=== PATIENT | female | born 1970 | race African-American/Black ===

== ENCOUNTER 2020-07-30 00:40 | Inpatient (IN) ==
[2020-07-30] MEDS ORDERED: VANCOMYCIN INJ 1,000 MG in SODIUM CHLORIDE 0.9% 250 ML IV STA (01:18)
[2020-07-30 01:42] LABS: Basophils % 0.3 % (0.0-0.8); Eosinophils # 0.1 10*3/uL (0.0-0.87); Eosinophils % 0.9 % (0.00-10.9); Hemoglobin 12.1 GM/DL (12.0-16.0); Immature Granulocytes % 0.5 %; Immature Granulocytes Absolute 0.08 #; Lymphocytes # 1.1 10*3/uL (1.4-4.0); Lymphocytes % 7.2 % (21.3-54.2); Mean Corpuscular HGB Conc 32.7 GM/DL (32-36); Mean Corpuscular Volume 91.1 FL (87-102); Mean Platelet Volume 10.4 FL (9.6-12.0); Neutrophils % 85.1 % (38.7-73.9); Platelet Count 359 T/CUMM (130-400); Red Blood Count 4.06 MC/CUMM (3.8-5.5); Red Cell Distribution Width 13.9 % (9.3-17.3); White Blood Count 14.9 T/CUMM (4-12)
[2020-07-30 02:16] LABS: Albumin 3.5 G/DL (3.4-5.0); Bilirubin,Total 0.9 MG/DL (0.2-1.0); Calcium 9.3 MG/DL (8.5-10.1); Osmolality,Calculated 278.8 MOS/KG (273-304); Total Protein 8.1 G/DL (6.4-8.3)
[2020-07-30] MEDS ORDERED: hydrALAZINE 20 MG/1 ML VIAL IV PRN (02:33)
[2020-07-30] MEDS ORDERED: diphenhydrAMINE CAP 25 MG CAPSULE PO PRN (02:33)
[2020-07-30] MEDS ORDERED: guaiFENesin/DM ER 600-30 MG TABLET PO PRN (02:33)
[2020-07-30] MEDS ORDERED: DEXTROSE 50% 25 GM/50 ML VIAL IV PRN (02:33)
[2020-07-30] MEDS ORDERED: NICOTINE 21 MG/24 HR PATCH TRANSDERM PRN (02:33)
[2020-07-30] MEDS ORDERED: ACETAMINOPHEN 325 MG TABLET PO PRN (02:33)
[2020-07-30] MEDS ORDERED: GLUCAGON 1 MG VIAL IM PRN (02:33)
[2020-07-30] MEDS ORDERED: ALUMINUM/MAGNES/SIMETH MAX STR 30 ML UDCUP PO PRN (02:33)
[2020-07-30] MEDS ORDERED: POTASSIUM CHLORIDE 20 MEQ TABLET PO ONE (11:15)
[2020-07-30] MEDS ORDERED: ENOXAPARIN 40 MG/0.4 ML SYRINGE SUBCUT SCH (11:30)
[2020-07-30] MEDS: CLINDAMYCIN INJ 600 MG in PREMIX 1 EACH IV SCH ×2 (11:48→21:13)
[2020-07-30] MEDS: VANCOMYCIN INJ 1,250 MG in SODIUM CHLORIDE 0.9% 250 ML IV SCH (13:46)
[2020-07-30] MEDS: INSULIN LISPRO 100 UNIT/ML SUBCUT SCH ×3 (13:46→21:06)
[2020-07-30] MEDS: MORPHINE 4 MG/1 ML VIAL IV PRN (18:42)
[2020-07-30] MEDS: ONDANSETRON 4 MG/2 ML VIAL IV PRN (18:42)
[2020-07-30] MEDS ORDERED: INSULIN GLARGINE 100 UNIT/ML SUBCUT SCH (21:00)
[2020-07-31] MEDS: VANCOMYCIN INJ 1,250 MG in SODIUM CHLORIDE 0.9% 250 ML IV SCH ×2 (01:50→15:12)
[2020-07-31] MEDS: CLINDAMYCIN INJ 600 MG in PREMIX 1 EACH IV SCH (05:15)
[2020-07-31 08:11] LABS: Basophils % 0.1 % (0.0-0.8); Eosinophils # 0.2 10*3/uL (0.0-0.87); Eosinophils % 1.7 % (0.00-10.9); Hematocrit 33.9 VOL% (35.7-47.0); Immature Granulocytes % 0.5 %; Immature Granulocytes Absolute 0.05 #; Lymphocytes # 1.4 10*3/uL (1.4-4.0); Mean Corpuscular HGB Conc 32.4 GM/DL (32-36); Mean Corpuscular Volume 90.2 FL (87-102); Mean Platelet Volume 9.5 FL (9.6-12.0); Monocytes % 7.5 % (1.7-12.7); Neutrophils % 77.2 % (38.7-73.9); Platelet Count 359 T/CUMM (130-400); Red Blood Count 3.76 MC/CUMM (3.8-5.5); Red Cell Distribution Width 14.1 % (9.3-17.3); White Blood Count 10.5 T/CUMM (4-12)
[2020-07-31 08:30] LABS: Osmolality,Calculated 290.1 MOS/KG (273-304)
[2020-07-31] MEDS: INSULIN LISPRO 100 UNIT/ML SUBCUT SCH ×4 (08:38→20:49)
[2020-07-31] MEDS: MORPHINE 4 MG/1 ML VIAL IV PRN (09:00)
[2020-07-31] MEDS: LOSARTAN 25 MG TABLET PO SCH (10:48)
[2020-07-31] MEDS: PIPERACILLIN/TAZOBACTAM 3,375 MG in SODIUM CHLORIDE 0.9% 100 ML IV SCH ×2 (10:48→17:54)
[2020-07-31] MEDS: INSULIN GLARGINE 100 UNIT/ML SUBCUT SCH (20:48)
[2020-08-01] MEDS: ONDANSETRON 4 MG/2 ML VIAL IV PRN (04:25)
[2020-08-01] MEDS: VANCOMYCIN INJ 1,250 MG in SODIUM CHLORIDE 0.9% 250 ML IV SCH ×2 (04:25→15:45)
[2020-08-01 05:16] LABS: Basophils % 0.3 % (0.0-0.8); Eosinophils # 0.1 10*3/uL (0.0-0.87); Eosinophils % 1.3 % (0.00-10.9); Hematocrit 32.1 VOL% (35.7-47.0); Hemoglobin 10.4 GM/DL (12.0-16.0); Immature Granulocytes % 0.7 %; Immature Granulocytes Absolute 0.08 #; Lymphocytes # 1.7 10*3/uL (1.4-4.0); Lymphocytes % 15.6 % (21.3-54.2); Mean Corpuscular HGB Conc 32.4 GM/DL (32-36); Mean Corpuscular Volume 91.2 FL (87-102); Mean Platelet Volume 9.8 FL (9.6-12.0); Monocytes % 7.2 % (1.7-12.7); Neutrophils % 74.9 % (38.7-73.9); Platelet Count 378 T/CUMM (130-400); Red Blood Count 3.52 MC/CUMM (3.8-5.5); Red Cell Distribution Width 14.1 % (9.3-17.3)
[2020-08-01] MEDS: MORPHINE 4 MG/1 ML VIAL IV PRN ×4 (07:23→22:36)
[2020-08-01] MEDS: PIPERACILLIN/TAZOBACTAM 3,375 MG in SODIUM CHLORIDE 0.9% 100 ML IV SCH ×3 (07:24→22:30)
[2020-08-01] MEDS: INSULIN LISPRO 100 UNIT/ML SUBCUT SCH ×4 (07:49→20:22)
[2020-08-01] MEDS ORDERED: BUPIVACAINE MPF 0.25% 30 ML VIAL ONE (08:31)
[2020-08-01] MEDS ORDERED: LIDOCAINE 1% 20 ML VIAL ONE (08:32)
[2020-08-01] MEDS ORDERED: SCOPOLAMINE 1.5 MG PATCH TRANSDERM ONE (08:50)
[2020-08-01] MEDS: LOSARTAN 25 MG TABLET PO SCH (08:51)
[2020-08-01] MEDS ORDERED: ONDANSETRON 4 MG/2 ML VIAL IV PRN (09:29)
[2020-08-01] MEDS ORDERED: propofoL 200 MG/20 ML VIAL IV ONE (09:31)
[2020-08-01] MEDS ORDERED: LIDOCAINE 2% 5 ML VIAL ONE (09:31)
[2020-08-01] MEDS ORDERED: MIDAZOLAM 2 MG/2 ML VIAL ONE (09:32)
[2020-08-01] MEDS ORDERED: DEXAMETHASONE 4 MG/1 ML VIAL ONE (09:32)
[2020-08-01] MEDS ORDERED: ONDANSETRON 4 MG/2 ML VIAL ONE (09:32)
[2020-08-01] MEDS ORDERED: fentaNYL 100 MCG/2 ML VIAL ONE (09:32)
[2020-08-01] MEDS: HYDROmorphone 2 MG/1 ML VIAL IV PRN ×4 (09:35→09:50)
[2020-08-01] MEDS ORDERED: MEPERIDINE 25 MG/1 ML VIAL IV ONE (09:55)
[2020-08-01] MEDS ORDERED: MEPERIDINE 25 MG/1 ML VIAL ONE (10:00)
[2020-08-01] MEDS: INSULIN GLARGINE 100 UNIT/ML SUBCUT SCH (20:21)
[2020-08-02] MEDS: VANCOMYCIN INJ 1,250 MG in SODIUM CHLORIDE 0.9% 250 ML IV SCH ×2 (05:22→20:11)
[2020-08-02] MEDS: PIPERACILLIN/TAZOBACTAM 3,375 MG in SODIUM CHLORIDE 0.9% 100 ML IV SCH ×3 (06:48→23:57)
[2020-08-02] MEDS: INSULIN LISPRO 100 UNIT/ML SUBCUT SCH ×4 (08:13→22:17)
[2020-08-02] MEDS: MORPHINE 4 MG/1 ML VIAL IV PRN ×2 (08:14→17:07)
[2020-08-02] MEDS: LOSARTAN 25 MG TABLET PO SCH (08:14)
[2020-08-02 09:05] LABS: Basophils % 0.3 % (0.0-0.8); Eosinophils # 0.2 10*3/uL (0.0-0.87); Eosinophils % 1.4 % (0.00-10.9); Hematocrit 33.8 VOL% (35.7-47.0); Immature Granulocytes % 0.9 %; Immature Granulocytes Absolute 0.13 #; Lymphocytes # 3.4 10*3/uL (1.4-4.0); Lymphocytes % 24.4 % (21.3-54.2); Mean Corpuscular HGB Conc 32.5 GM/DL (32-36); Mean Corpuscular Volume 90.1 FL (87-102); Mean Platelet Volume 9.4 FL (9.6-12.0); Monocytes % 4.6 % (1.7-12.7); Neutrophils % 68.4 % (38.7-73.9); Platelet Count 444 T/CUMM (130-400); Red Blood Count 3.75 MC/CUMM (3.8-5.5); Red Cell Distribution Width 14.2 % (9.3-17.3); White Blood Count 13.9 T/CUMM (4-12)
[2020-08-02 09:25] LABS: Calcium 9.4 MG/DL (8.5-10.1); Osmolality,Calculated 281.3 MOS/KG (273-304)
[2020-08-02] MEDS ORDERED: HYDROmorphone 2 MG/1 ML VIAL IV ONE (09:57)
[2020-08-02] MEDS: SODIUM HYPOCHLORITE 0.25% IRRIG 473 ML BOTTLE TOP SCH (10:16)
[2020-08-02] MEDS: INSULIN GLARGINE 100 UNIT/ML SUBCUT SCH (22:17)
[2020-08-03 05:44] LABS: Basophils % 0.4 % (0.0-0.8); Eosinophils # 0.2 10*3/uL (0.0-0.87); Hematocrit 36.2 VOL% (35.7-47.0); Hemoglobin 11.4 GM/DL (12.0-16.0); Lymphocytes # 3.1 10*3/uL (1.4-4.0); Lymphocytes % 31.4 % (21.3-54.2); Mean Corpuscular HGB Conc 31.5 GM/DL (32-36); Mean Corpuscular Volume 92.6 FL (87-102); Mean Platelet Volume 9.5 FL (9.6-12.0); Monocytes % 5.9 % (1.7-12.7); Neutrophils % 59.3 % (38.7-73.9); Platelet Count 490 T/CUMM (130-400); Red Blood Count 3.91 MC/CUMM (3.8-5.5); Red Cell Distribution Width 14.5 % (9.3-17.3); White Blood Count 9.9 T/CUMM (4-12)
[2020-08-03] MEDS: PIPERACILLIN/TAZOBACTAM 3,375 MG in SODIUM CHLORIDE 0.9% 100 ML IV SCH ×3 (05:52→21:40)
[2020-08-03 06:02] LABS: Calcium 9.3 MG/DL (8.5-10.1); Osmolality,Calculated 283.8 MOS/KG (273-304)
[2020-08-03] MEDS: INSULIN LISPRO 100 UNIT/ML SUBCUT SCH ×4 (08:19→20:02)
[2020-08-03] MEDS: LOSARTAN 25 MG TABLET PO SCH (09:31)
[2020-08-03] MEDS: POTASSIUM CHLORIDE 20 MEQ TABLET PO PRN ×3 (09:31→13:33)
[2020-08-03] MEDS: SODIUM HYPOCHLORITE 0.25% IRRIG 473 ML BOTTLE TOP SCH (09:31)
[2020-08-03] MEDS: MORPHINE 4 MG/1 ML VIAL IV PRN ×3 (11:10→21:40)
[2020-08-03] MEDS: ONDANSETRON 4 MG/2 ML VIAL IV PRN (11:12)
[2020-08-03] MEDS: INSULIN GLARGINE 100 UNIT/ML SUBCUT SCH (21:33)
[2020-08-04 05:48] LABS: Basophils % 0.3 % (0.0-0.8); Eosinophils # 0.2 10*3/uL (0.0-0.87); Eosinophils % 2.6 % (0.00-10.9); Hematocrit 34.3 VOL% (35.7-47.0); Immature Granulocytes % 1.5 %; Immature Granulocytes Absolute 0.11 #; Lymphocytes # 2.1 10*3/uL (1.4-4.0); Lymphocytes % 29.4 % (21.3-54.2); Mean Corpuscular HGB Conc 32.1 GM/DL (32-36); Mean Corpuscular Volume 91.2 FL (87-102); Mean Platelet Volume 9.9 FL (9.6-12.0); Monocytes % 6.6 % (1.7-12.7); Neutrophils % 59.6 % (38.7-73.9); Platelet Count 426 T/CUMM (130-400); Red Blood Count 3.76 MC/CUMM (3.8-5.5); Red Cell Distribution Width 14.2 % (9.3-17.3); White Blood Count 7.2 T/CUMM (4-12)
[2020-08-04] MEDS: PIPERACILLIN/TAZOBACTAM 3,375 MG in SODIUM CHLORIDE 0.9% 100 ML IV SCH ×3 (05:56→21:16)
[2020-08-04 06:02] LABS: Calcium 9.1 MG/DL (8.5-10.1); Osmolality,Calculated 280.3 MOS/KG (273-304)
[2020-08-04] MEDS: INSULIN LISPRO 100 UNIT/ML SUBCUT SCH ×4 (07:38→21:05)
[2020-08-04] MEDS: MORPHINE 4 MG/1 ML VIAL IV PRN (08:23)
[2020-08-04] MEDS: LOSARTAN 25 MG TABLET PO SCH (08:23)
[2020-08-04] MEDS ORDERED: SCOPOLAMINE 1.5 MG PATCH TRANSDERM ONE (08:57)
[2020-08-04] MEDS ORDERED: LIDOCAINE 1% 20 ML VIAL ONE (09:10)
[2020-08-04] MEDS ORDERED: HYDROmorphone 2 MG/1 ML VIAL ONE (09:26)
[2020-08-04] MEDS ORDERED: ONDANSETRON 4 MG/2 ML VIAL IV PRN (09:28)
[2020-08-04] MEDS ORDERED: SODIUM CHLORIDE 0.9% 100 ML IV ONE (09:34)
[2020-08-04] MEDS ORDERED: MIDAZOLAM 2 MG/2 ML VIAL ONE (09:34)
[2020-08-04] MEDS ORDERED: ETOMIDATE 40 MG/20 ML VIAL IV ONE (09:34)
[2020-08-04] MEDS ORDERED: propofoL 200 MG/20 ML VIAL IV ONE (09:34)
[2020-08-04] MEDS ORDERED: fentaNYL 100 MCG/2 ML VIAL ONE (09:34)
[2020-08-04] MEDS: HYDROmorphone 2 MG/1 ML VIAL IV PRN ×4 (09:38→10:11)
[2020-08-04] MEDS: SODIUM HYPOCHLORITE 0.25% IRRIG 473 ML BOTTLE TOP SCH (09:44)
[2020-08-04] MEDS ORDERED: PROMETHAZINE 25 MG/1 ML VIAL IV ONE (10:23)
[2020-08-04] MEDS ORDERED: DEXTROSE 50% 25 GM/50 ML VIAL IV PRN (11:19)
[2020-08-04] MEDS: INSULIN GLARGINE 100 UNIT/ML SUBCUT SCH (21:04)
[2020-08-05] MEDS: PIPERACILLIN/TAZOBACTAM 3,375 MG in SODIUM CHLORIDE 0.9% 100 ML IV SCH (06:23)
[2020-08-05] MEDS: INSULIN LISPRO 100 UNIT/ML SUBCUT SCH (07:53)
[2020-08-05 08:21] VITALS: BP 130/60
[2020-08-05] MEDS: LOSARTAN 25 MG TABLET PO SCH (08:42)
[2020-08-05] MEDS: SODIUM HYPOCHLORITE 0.25% IRRIG 473 ML BOTTLE TOP SCH (10:00)
[2020-08-05] MEDS ORDERED: CLINDAMYCIN 300 MG CAPSULE PO SCH (12:00)
== END 2020-08-05 12:00 | disposition home health service (06) | DRG 623 ==
LOC: N.EDINP 00:40 → N.ED 00:40 → SUATTDRO 02:33 → N.3E 03:10 → SUATTDRO 08-01 16:11
PROVIDERS: ADMIT Emergency Medicine; ATTEND Internal Medicine